=== PATIENT | female | born 1985 | race Caucasian/White ===

== ENCOUNTER 2019-03-25 13:00 | Emergency (ER) | payer OTHER, MEDICAID, SELFPAY ==
[2019-03-25 13:02] VITALS: BP 134/83; PULSE 85; RESP 16; TEMP 36.9; O2SAT 99; BMI 36.0
--- NOTE | 2019-03-25 14:10 | ED_ITS ---
HPI - Eye Problem General Chief complaint: Eye Problems Stated complaint: pupils are different sizes Time Seen by Provider: 03/25/19 14:09 Source: patient Mode of arrival: Ambulatory Limitations: no limitations History of Present Illness HPI Narrative: The patient is a 33-year-old female who was sent into the emergency department by her primary care physician because she cannot be seen in follow-up in the office. She was seen by an electro mechanical technician on Sunday 4 days prior to admission when she was told that she had unequal pupils. The electro mechanical technician told her that she would need to be seen in follow-up by her primary physician. The patient denies any eye pain change in vision double vision blurred vision or loss of vision. She does not have any headache. Her eyelids do not droop. She has had no weakness of the face. She has had no neck injury or neck pain arm. She has had no irregular heartbeat, heart murmur or chest pain. She denies any recent cough sore throat nasal congestion shortness of breath or chest pain. She has had no nausea no vomiting no diarrhea. She denies being . Related Data Home Medications Medication Instructions Recorded Confirmed multivitamin 1 tab PO DAILY 03/25/19 03/25/19 polyethylene glycol 3350 [Miralax] 17 g PO DAILY PRN 03/25/19 03/25/19 Allergies Allergy/AdvReac Type Severity Reaction Status Date / Time No Known Drug Allergies Allergy Verified 03/25/19 13:02 Review of Systems Review of Systems ROS Unobtainable: All systems reviewed & are unremarkable except as noted in HPI and below Patient History Family History Grandfather Heart disease Grandmother History of breast cancer Alzheimers disease Social History Smoking Status: Current every day smoker Smoking Status: Current every day smoker alcohol intake frequency: holidays/special occasions only Substance Use Type: does not use Exam Narrative Exam Narrative: PHYSICAL EXAM: CONSTITUTIONAL: Awake, Alert, Oriented, Coherent, Cooperative in NAD. Does not appear toxic or ill. HEAD: AT/NC EENT: Pupils are on equal left greater than right. Both react briskly in constrict to light. Both dilated in the dark. Anterior chambers are clear. Fundi are sharp discs bilaterally. Patient has full range of motion of the eyes without nystagmus. No drainage from the ears, Tympanic membranes intact bilaterally, clear EAC No epistaxis or nasal drainage Oral mucosa is moist and pink, posterior pharynx is without erythema or exudate. NECK: Supple, no obvious JVD, Trachea is midline without stridor, no palpable LN or masses. No bruits SPINE: No gross deformity, no palpable tenderness of the cervical, thoracic, lumbar or sacral spine. No CVA tenderness. THORAX: No deformity, retractions, chest wall tenderness, subcutaneous air or crepitice. LUNGS: Clear with symmetrical breath sounds without respiratory distress HEART: Normal heart tones, regular rhythm and rate without murmur. SKIN: No rash, bruising, petechiae or purpura. NEURO: Awake, alert, oriented, conversive, cranial nerves II-XII are symmetrical and normal, moves all 4 extremities and is ambulatory the patient is able to shrug both shoulders. She has full range motion of her neck. There is no ptosis of the eyelids. There is no decreased sensation or dryness of the skin arm over her of face for head or arm shoulders. Initial Vital Signs Initial Vital Signs: Vital Signs Temperature 98.4 F 03/25/19 13:02 Pulse Rate 85 03/25/19 13:02 Respiratory Rate 16 03/25/19 13:02 Blood Pressure 134/83 03/25/19 13:02 Pulse Oximetry 99 03/25/19 13:02 Course Course Course Narrative: The patient was advised that at this time no acute pathology is evident. She was advised that she needs to be seen in follow-up by her primary care physician and the un equal pupils followed. No further testing n eeds to be performed in the emergency department at this time. But will need to be followed by her primary care physician she was informed that this may be just a normal variant. She was also stated that she got no eyedrops other than that provided by the electro mechanical technician. She has gotten no soap for chemicals in her eye. She is unaware of any head trauma or bruising to the area of the arm I. She was advised to follow-up with her primary care should care physician in 48- 72 hours. Vital Signs Vital signs: Vital Signs - 8 hr 03/25/19 13:02 Temperature 98.4 F Pulse Rate 85 Respiratory Rate 16 Blood Pressure 134/83 Pulse Oximetry 99 Discharge Plan Departure Patient Disposition: Home Clinical Impression: Anisocoria Discharge Date/Time: 03/25/19 14:44 Activity Restrictions/Additional Instructions: There are no specific instructions for anisocoria. You can look this up on the Internet. 20% of the population have it and it is completely normal. Other causes can be local trauma chemicals in the eye etc.. He can be also associated with headaches. If you start developing headaches numbness tingling loss of sensation weakness on 1 side of the body arm than you need to be re-evaluated. Otherwise I would just follow up with her primary care physician and monitor it. Your neurological exam was completely within normal limits an year funduscopic exam was also normal. Prescriptions: No Action multivitamin Tablet 1 tab PO DAILY RF: 0 polyethylene glycol 3350 [Miralax] 17 gram Powder In Packet 17 g PO DAILY PRN (Reason: Constipation) RF: 0 Referrals: April Feldman ARNP [Primary Care Provider] -
== END 2019-03-25 14:44 | disposition home or self-care (01) ==
PROVIDERS: Emergency Provider Emergency Medicine; PCP Nurse Practitioner Gerontology
DX: H57.02 Anisocoria (principal)
CPT/HCPCS: 99281

== ENCOUNTER 2022-12-17 12:12 | Emergency (ER) | payer OTHER, MEDICAID, SELFPAY ==
[2022-12-17 12:18] VITALS: BP 127/82; PULSE 66; RESP 16; TEMP 37.1; O2SAT 100; BMI 38.7
--- NOTE | 2022-12-17 14:15 | ED.BACK ---
HPI - Back Pain/Injury <Ernst Ibarra PA-C - Last Filed: 12/17/22 14:46> General Chief Complaint: Back Pain/Injury Stated Complaint: back spasms Time Seen by Provider: 12/17/22 14:15 Source: patient History of Present Illness HPI Narrative: This is a 37-year-old female presents emergency department due to acute on chronic left-sided lower back pain. States that she has a history of chronic back pain with occasional flare-ups. No specific trauma or injury to the area. States that she is been taking muscle relaxants, ibuprofen for the pain with some relief. Requesting a Medrol Dosepak as she says it is worked very effectively for her in the past. Denies any saddle paresthesias, urinary or bowel incontinence, or any other concerning signs or symptoms. Related Data Home Medications Medication Instructions Recorded Confirmed multivitamin 1 tab PO DAILY 03/25/19 03/25/19 polyethylene glycol 3350 17 gram 17 g PO DAILY PRN Constipation 03/25/19 03/25/19 oral powder packet (Miralax) Previous Rx's Medication Instructions Recorded cyclobenzaprine 10 mg tablet 10 mg PO TID PRN muscle spasm #30 12/17/22 tabs methylprednisolone 4 mg tablets in See Rx Instructions PO .COMPLEX 12/17/22 a dose pack (Medrol (Ean)) #21 ea Allergies Allergy/AdvReac Type Severity Reaction Status Date / Time No Known Drug Allergies Allergy Verified 03/25/19 13:02 Review of Systems <Ernst Ibarra PA-C - Last Filed: 12/17/22 14:46> Review of Systems Narrative: GENERAL: Denies chills, fatigue, malaise, fever, sweats. HEENT: Denies sinus pain, ear pain, sore throat, difficulty swallowing, dizziness. RESPIRATORY: Denies dyspnea, cough, wheezing, hemoptysis, sputum. CARDIOVASCULAR: Denies chest pain, palpitations, orthopnea, edema, GASTROINTESTINAL: Denies nausea, vomiting, abdominal pain, diarrhea, constipation, melena. : Denies dysuria, frequency, incontinence, hematuria, urinary retention. MUSCULOSKELETAL: Left-sided lumbar pain. SKIN: Denies rash, skin lesions, or other NEUROLOGIC: Denies weakness, headache, numbness, change in speech, confusion, seizures, incoordination. PSYCHIATRIC: No concerning psychosocial issues. 12 point review of systems is negative except for those stated above Patient History <Ernst Ibarra PA-C - Last Filed: 12/17/22 14:46> Family History Grandfather Heart disease Grandmother History of breast cancer Alzheimers disease Social History Smoking Status: Current every day smoker Smoking Status: Current every day smoker alcohol intake frequency: holidays/special occasions only Substance Use Type: does not use Exam <Ernst Ibarra PA-C - Last Filed: 12/17/22 14:46> Narrative Exam Narrative: GENERAL: Well-developed patient, in mild distress. HEAD: Atraumatic. Normocephalic. EYES: Pupils equal round and reactive. Extraocular motions intact. No scleral icterus. No injection or drainage. ENT: Nose without bleeding, purulent drainage. Throat without erythema, tonsillar hypertrophy or exudate. Airway patent. NECK: Trachea midline. Non tender CARDIOVASCULAR: Regular rate and rhythm without murmurs, gallops, or rubs. RESPIRATORY: Clear to auscultation. Breath sounds equal bilaterally. No wheezes, rales, or rhonchi. GASTROINTESTINAL: Abdomen soft, non-tender, nondistended. EXTREMITIES: No edema or joint tenderness. BACK: Mild tenderness to palpation to lumbar paraspinal muscles. NEURO: AOx3. SKIN: No rash or erythema of visible areas Initial Vital Signs Initial Vital Signs: Vital Signs Temperature 98.7 F 12/17/22 12:18 Pulse Rate 66 12/17/22 12:18 Respiratory Rate 16 12/17/22 12:18 Blood Pressure 127/82 12/17/22 12:18 Pulse Oximetry 100 12/17/22 12:18 Oxygen Delivery Method Room Air 12/17/22 12:18 <Johanna Mascorro DO - Last Filed: 12/21/22 08:53> Initial Vital Signs Initial Vital Signs: Vital Signs Temperature 98.7 F 12/17/22 12:18 Pulse Rate 66 12/17/22 12:18 Respiratory Rate 16 12/17/22 12:18 Blood Pressure 127/82 12/17/22 12:18 Pulse Oximetry 100 12/17/22 12:18 Oxygen Delivery Method Room Air 12/17/22 12:18 Course <Ernst Ibarra PA-C - Last Filed: 12/17/22 14:46> Vital Signs Vital signs: Vital Signs - 8 hr 12/17/22 12:18 Temperature 98.7 F Pulse Rate 66 Respiratory Rate 16 Blood Pressure 127/82 Pulse Oximetry 100 Oxygen Delivery Method Room Air <Johanna DO Subha - Last Filed: 12/21/22 08:53> Vital Signs Vital signs: Vital Signs - 8 hr 12/17/22 12:18 Temperature 98.7 F Pulse Rate 66 Respiratory Rate 16 Blood Pressure 127/82 Pulse Oximetry 100 Oxygen Delivery Method Room Air MDM - Back Pain/Injury <Ernst Ibarra PA-C - Last Filed: 12/17/22 14:46> MDM Narrative Medical decision making narrative: MDM * differential diagnosis includes but not limited to lumbosacral strain, central cord compromise, fracture * Prior records reviewed: Patient has not been here in the past. * My lab interpretation: None obtained * My imgaing interpretation: None obtained * Clinical Decision Rules/Scores evaluated: None * Independent discussions with: None ED Course: This is a 37-year-old female presents emergency department complaining of acute on chronic lower back pain. No specific injuries or trauma and low concern for any kind of fracture. No concerning red flag symptoms such as saddle paresthesia, urinary incontinence, or other concerning signs or symptoms. Patient requesting Medrol Dosepak and will prescribe as well as muscle relaxants and recommendations for ibuprofen and Tylenol and other conservative measures. Patient states she is been taking ibuprofen throughout the day and was not treated with Toradol. Shared Decision Making: Discussed plan with patient who is comfortable with the plan. Social Considerations: None Disposition: Discharged to home. Discharge Plan Departure Patient Disposition: Home Clinical Impression: Strain of lumbar region Instructions: DI for Back Spasm Activity Restrictions/Additional Instructions: Thank you for coming to the [facility] Emergency Department today. Please take the oral medications as prescribed. Also recommend you speak with the primary care provider for possible referral to physical therapy for long-term management of your chronic back pain. I hope you feel better soon. Please follow up with your primary care provider within a week if your symptoms continue. If you do not have a primary care provider please contact the [facility] Resource line at [phone]. They will ask some questions about your medical history and help you get set up with a provider in the community. Prescriptions: New methylprednisolone [Medrol (Ean)] 4 mg tablets,dose pack See Rx Instructions .ROUTE .COMPLEX Qty: 21 0RF Rx Instructions: orally per package directions cyclobenzaprine 10 mg tablet 10 mg PO TID PRN (Reason: muscle spasm) Qty: 30 0RF No Action multivitamin Tablet 1 tab PO DAILY polyethylene glycol 3350 [Miralax] 17 gram Powder In Packet 17 g PO DAILY PRN (Reason: Constipation) Referrals: April Feldman ARNP [Primary Care Provider] - Stand Alone Forms: Patient Portal/API ED Sign-out <Johanna Mascorro DO - Last Filed: 12/21/22 08:53> Cosign ED Attending Apoorvaature Attestation: I was immediately available in the department for consultation. Documentation has been reviewed.
[2022-12-17 14:50] VITALS: BP 125/82; PULSE 64; RESP 16; TEMP 37; O2SAT 100
== END 2022-12-17 14:51 | disposition home or self-care (01) ==
PROVIDERS: Emergency Provider Physician Assistant Medical; PCP Nurse Practitioner Gerontology
DX: S39.012A Strain of muscle, fascia and tendon of lower back, initial encounter (principal)
CPT/HCPCS: 99281

== ENCOUNTER 2023-07-15 10:22 | Emergency (ER) | payer OTHER, MEDICAID, SELFPAY ==
[2023-07-15] VITALS (11 sets, daily range): BP systolic 111–152; BP diastolic 68–91; PULSE 62–90; RESP 13–23; O2SAT 97–100; BMI 36.8
[2023-07-15 11:02] LABS: Alanine Aminotransferase 23 IU/L (<35); Albumin 5.1 g/dL (3.5-5.0); Albumin Globulin Ratio 1.9 (1.0-2.8); Alkaline Phosphatase 72 U/L (38-126); Aspartate Aminotransferase 26 IU/L (14-36); BUN Creatinine Ratio 8.8 (6-22); Bilirubin Total 0.9 mg/dL (0.2-1.3); Blood Urea Nitrogen 6 mg/dL (7-17); Calcium 9.2 mg/dL (8.4-10.2); Carbon Dioxide 21 mmol/L (22-32); Chloride 109 mmol/L (98-107); Estimated Glomerular Filt Rate > 60 mL/min (>60); Globulin 2.7 g/dL (1.7-4.1); Glucose 120 mg/dL (70-100); HEMOLYSIS < 15 (0-50); Potassium 3.6 mmol/L (3.4-5.1); Sodium 139 mmol/L (137-145); Total Protein 7.8 g/dL (6.3-8.2)
[2023-07-15 11:07] LABS: Add Manual Diff / Slide Review NO; Basophils Absolute Auto 0 /uL (0-100); Basophils Percent Auto 0.6 % (0-2); Eosinophils Absolute Auto 100 /uL (0-450); Eosinophils Percent Auto 1.3 % (2-4); Hematocrit 40.4 % (36-46); Hemoglobin 13.7 g/dL (12.0-16.0); Lymphocytes Absolute Auto 1400 /uL (1100-4500); Lymphocytes Percent Auto 21.7 % (25-40); Mean Corpuscular HGB Conc 33.9 % (30-36); Mean Corpuscular Hemoglobin 29.5 PG (26-34); Mean Corpuscular Volume 87.2 fL (80-100); Monocytes Absolute Auto 400 /uL (0-900); Monocytes Percent Auto 6.7 % (3-14); Neutrophils Absolute Auto 4500 /uL (1500-7000); Neutrophils Percent Auto 69.7 % (50-75); Platelet Count 236 X10^3/uL (150-400); Red Blood Cell Count 4.64 X10^6/uL (4.0-5.2); Red Cell Distribution Width 14.6 % (11.6-14.8); White Blood Cell Count 6.5 X10^3/uL (4.5-11.0)
[2023-07-15 11:13] LABS: Troponin I < 0.012 ng/mL (0.01-0.034)
[2023-07-15] MEDS: SODIUM CHLORIDE 0.9% 1,000 ML 1000 ML IV ×2 (11:19→12:16)
--- NOTE | 2023-07-15 12:04 | ED_ITS ---
HPI - Dizziness General Chief Complaint: Dizziness Stated Complaint: feeling lightheaded Time Seen by Provider: 07/15/23 10:53 Source: patient Mode of arrival: Ambulatory History of Present Illness HPI Narrative: Patient is a 37-year-old healthy female who presents today with lightheadedness. She reports that every time she stands up she gets a little lightheaded. She has not passed out no syncopal episodes. She feels like heart rate goes up a little bit. She reports significant night sweats where she waits wakes up and a drenching sweat but denies any significant weight loss. She does not really have sore throat or cough. No abdominal pain nausea or vomiting. She reports that she has been drinking lots of water. She thought that maybe her sugar was low she was she has been drinking lots of ice tea. Been to the urgent care twice they told her that she was anxious Related Data Home Medications Medication Instructions Recorded Confirmed multivitamin 1 tab PO DAILY 03/25/19 03/25/19 polyethylene glycol 3350 17 gram 17 g PO DAILY PRN Constipation 03/25/19 03/25/19 oral powder packet (Miralax) Previous Rx's Medication Instructions Recorded cyclobenzaprine 10 mg tablet 10 mg PO TID PRN muscle spasm #30 12/17/22 tabs methylprednisolone 4 mg tablets in See Rx Instructions PO .COMPLEX 12/17/22 a dose pack (Medrol (Ean)) #21 ea Allergies Allergy/AdvReac Type Severity Reaction Status Date / Time No Known Drug Allergies Allergy Verified 03/25/19 13:02 Patient History Family History Grandfather Heart disease Grandmother History of breast cancer Alzheimers disease Social History Smoking Status: Current every day smoker Smoking Status: Current every day smoker tobacco type: cigarettes alcohol intake frequency: holidays/special occasions only Substance Use Type: marijuana Exam Initial Vital Signs Initial Vital Signs: Vital Signs Pulse Rate 80 07/15/23 10:31 Blood Pressure 135/86 07/15/23 10:31 Pulse Oximetry 99 07/15/23 10:31 GENERAL: Alert pleasant well-appearing 37-year-old and in no acute distress. HEENT: Head atraumatic,EOMI, pupils reactive, face symmetric, no significant cervical lymphadenopathy CARDIOVASCULAR: Regular rate and rhythm without murmurs, rubs or gallops. RESPIRATORY: Breath sounds equal bilaterally, no wheezes rales or rhonchi. ABDOMEN: Soft, nontender. Normoactive bowel sounds all 4 quadrants. No guarding or rebound. EXTREMITIES: Normal range of motion, no clubbing or edema. Neurovascularly intact NEUROLOGICAL: Alert and oriented x4.Normal gait and speech. Cranial nerves II through XII grossly intact. SKIN: Warm, dry, no laceration, no petechiae, no rashes or lesions. Course Orders Ordered: ED Orders 07/15/23 12:11 Respiratory Panel (Film Array) Stat Discontinued Medications Sodium Chloride (Normal Saline 0.9%) 1,000 mls @ 1,000 mls/hr IV BOLUS ONE Stop: 07/15/23 11:58 Last Infusion: 07/15/23 12:04 Dose: Infused Documented By: Admin: 07/15/23 11:19 Dose: 1,000 mls/hr Documented By: Sodium Chloride (Normal Saline 0.9%) 1,000 mls @ 1,000 mls/hr IV BOLUS ONE Stop: 07/15/23 13:15 Last Infusion: 07/15/23 12:44 Dose: Infused Documented By: Admin: 07/15/23 12:16 Dose: 1,000 mls/hr Documented By: Vital Signs Vital signs: Vital Signs - 8 hr 07/15/23 12:00 07/15/23 12:00 07/15/23 12:06 Pulse Rate 63 90 Respiratory Rate 23 Blood Pressure 111/71 Pulse Oximetry 99 99 Oxygen Delivery Method 07/15/23 12:06 07/15/23 12:30 07/15/23 12:30 Pulse Rate 62 Respiratory Rate 21 Blood Pressure 152/73 H 124/77 Pulse Oximetry 100 Oxygen Delivery Method 07/15/23 12:46 07/15/23 12:46 07/15/23 13:00 Pulse Rate 71 Respiratory Rate 13 Blood Pressure 142/91 H 120/73 Pulse Oximetry 100 Oxygen Delivery Method 07/15/23 13:00 07/15/23 13:30 07/15/23 13:30 Pulse Rate 65 69 Respiratory Rate 15 23 Blood Pressure 122/75 Pulse Oximetry 97 97 Oxygen Delivery Method 07/15/23 14:00 Pulse Rate 74 Respiratory Rate 16 Blood Pressure 122/75 Pulse Oximetry 97 Oxygen Delivery Method Room Air MDM - Dizziness Lab Data 07/15/23 10:43 07/15/23 10:43 Labs: Lab Results 07/15/23 07/15/23 Range/Units 10:43 12:11 WBC 6.5 (4.5-11.0) X10^3/uL RBC 4.64 (4.0-5.2) X10^6/uL Hgb 13.7 (12.0-16.0) g/dL Hct 40.4 (36-46) % MCV 87.2 (80-100) fL MCH 29.5 (26-34) PG MCHC 33.9 (30-36) % RDW 14.6 (11.6-14.8) % Plt Count 236 (150-400) X10^3/uL Neut % (Auto) 69.7 (50-75) % Lymph % (Auto) 21.7 L (25-40) % George % (Auto) 6.7 (3-14) % Eos % (Auto) 1.3 L (2-4) % Baso % (Auto) 0.6 (0-2) % Neut # (Auto) 4500 (3712-1259) /uL Lymph # (Auto) 1400 (7279-9432) /uL George # (Auto) 400 (0-900) /uL Eos # (Auto) 100 (0-450) /uL Baso # (Auto) 0 (0-100) /uL Sodium 139 (137-145) mmol/L Potassium 3.6 (3.4-5.1) mmol/L Chloride 109 H (98-107) mmol/L Carbon Dioxide 21 L (22-32) mmol/L BUN 6 L (7-17) mg/dL Creatinine 0.68 (0.52-1.04) mg/dL Estimated GFR > 60 (>60) mL/min BUN/Creatinine Ratio 8.8 (6-22) Glucose 120 H (70-100) mg/dL Calcium 9.2 (8.4-10.2) mg/dL Total Bilirubin 0.9 (0.2-1.3) mg/dL AST 26 (14-36) IU/L ALT 23 (<35) IU/L Alkaline Phosphatase 72 (38-126) U/L Troponin I < 0.012 (0.01-0.034) ng/mL Total Protein 7.8 (6.3-8.2) g/dL Albumin 5.1 H (3.5-5.0) g/dL Globulin 2.7 (1.7-4.1) g/dL Albumin/Globulin Ratio 1.9 (1.0-2.8) Chlamy pneumoniae PCR Not detected (Not Detect) Adenovirus (PCR) Not detected (Not Detect) B.parapertussis DNA PCR Not detected (Not Detecte) Coronavirus OC43 (PCR) Not detected (Not Detect) Coronavirus HKU1 (PCR) Not detected (Not Detect) Coronavirus 229E (PCR) Not detected (Not Detect) SARS-CoV-2 (PCR) Not detected (Not Detecte) Coronavirus NL63 (PCR) Not detected (Not Detect) Human Metapneumovir PCR Not detected (Not Detect) Influenza Type A (PCR) Not detected (Not Detect) Influenza Type B (PCR) Not detected (Not Detect) M. pneumoniae (PCR) Not detected (Not Detect) Parainfluenza 1 (PCR) Not detected (Not Detect) Parainfluenza 2 (PCR) Not detected (Not Detect) Parainfluenza 3 (PCR) Not detected (Not Detect) Parainfluenza 4 (PCR) Not detected (Not Detect) RSV (PCR) Not detected (Not Detect) Entero/Rhino (PCR) Detected H (Not Detect) Point of Care Testing Test Results Negative Urine Dip Bedside Urine Glucose Negative Bedside Urine Bilirubin - Negative Bedside Urine Ketone - Negative Urine Specific [place] 1.005 Bedside Urine Occult Blood - Negative Bedside Urine pH 6.0 Bedside Urine Protein - Negative Bedside Urine Urobilinogen - Negative Bedside Urine Nitrite - Negative Bedside Urine Leukocytes - Negative Esterase ECG Data Attestation: I personally reviewed and interpreted this ECG as follows: Prior ECG tracings: not available for review Interpretation: Normal sinus rhythm rate 72 NE interval 184 QRS [address] changes no T- wave inversions [facility] Narrative Medical decision making narrative: 37-year-old female presents today with some dizziness lightheadedness whenever she stands up. When she lays down she does not feel as bad. Upon standing in the ED heart rate goes from 60-118 and in trickles back down. She remains in the sinus rhythm. She has not dizzy or lightheaded.No focal deficits. Blood work has been reviewed WBC 6.5, hemoglobin 13.7, hematocrit 40.4, sodium 139, potassium 3.6, chloride 109, carbon dioxide 21, BUN 6, creatinine 0.6, glucose 120, Viral panel is positive for entero/rhinovirus Patient received 2 L of IV fluids overall feeling a lot better. I suspect that she has the entero/rhinovirus causing her night sweats and some mild dehydration. She has positive orthostatics. Patient's is rechecked after 2 L of fluid. She is able to stand up heart rate only goes up to 108 she has not dizzy or lightheaded. Even though blood work does not show significant dehydration I do suspect that she was probably a little dehydrated. Her a definitely decreases soon as she lays down into the 60s. I have very low suspicion for any sort of pulmonary embolism she has not significantly short of breath. Symptoms are most consistent with an infectious etiology and she has a positive viral panel. At this time supportive care only Discharge Plan Departure Patient Disposition: Home Clinical Impression: Acute upper respiratory infection, Acute dehydration Instructions: Orthostatic Hypotension, DI for Viral Upper Respiratory Infection -- Adult Activity Restrictions/Additional Instructions: *You have been diagnosed with upper respiratory infection dehydration *What to do: At this time you do have upper respiratory virus. I think that you are little dehydrated which is why you feel lightheaded when he stands up. You received 2 L of IV fluids. I do recommend drinking Gatorade or Pedialyte while you are sick. *Continue to take medications as directed Tylenol Motrin as needed for fever *Follow up with your primary care provider in 2-3 days or call [phone] *Return to ER if you should have increasing dizziness lightheadedness passing out increasing shortness of breath or any new, worsening or concerning symptoms Prescriptions: No Action multivitamin Tablet 1 tab PO DAILY polyethylene glycol 3350 [Miralax] 17 gram Powder In Packet 17 g PO DAILY PRN (Reason: Constipation) methylprednisolone [Medrol (Ean)] 4 mg tablets,dose pack See Rx Instructions .ROUTE .COMPLEX Qty: 21 0RF Rx Instructions: orally per package directions cyclobenzaprine 10 mg tablet 10 mg PO TID PRN (Reason: muscle spasm) Qty: 30 0RF Referrals: April Feldman ARNP [Primary Care Provider] - Stand Alone Forms: Patient Portal/API
[2023-07-15 13:12] LABS: Adenovirus Not Detected (Not Detect); B. parapertussis Not Detected (Not Detecte); Bordetella pertussis Not Detected (Not Detect); Chlamydophila pneumoniae Not Detected (Not Detect); Coronavirus 229E Not Detected (Not Detect); Coronavirus HKU1 Not Detected (Not Detect); Coronavirus NL 63 Not Detected (Not Detect); Coronavirus OC43 Not Detected (Not Detect); Human Metapneumovirus Not Detected (Not Detect); Human Rhinovirus/Enterovirus Detected (Not Detect); Influenza A Not Detected (Not Detect); Influenza B Not Detected (Not Detect); Mycoplasma pneumoniae Not Detected (Not Detect); Parainfluenza Virus 1 Not Detected (Not Detect); Parainfluenza Virus 2 Not Detected (Not Detect); Parainfluenza Virus 3 Not Detected (Not Detect); Parainfluenza Virus 4 Not Detected (Not Detect); Respiratory Syncytial Virus Not Detected (Not Detect); SARS- CoV-2 Not Detected (Not Detecte)
== END 2023-07-15 15:04 | disposition home or self-care (01) ==
PROVIDERS: Emergency Provider Emergency Medicine; PCP Nurse Practitioner Gerontology
DX: J06.9 Acute upper respiratory infection, unspecified (principal); B34.8 Other viral infections of unspecified site; E86.0 Dehydration; Z20.822 Contact with and (suspected) exposure to COVID-19
CPT/HCPCS: 36415; 80053; 81003; 81025; 84484; 85025; 87633; 93005; 96360; 99284

== ENCOUNTER 2023-07-17 09:24 | Emergency (ER) | payer OTHER, MEDICAID, SELFPAY ==
--- NOTE | 2023-07-17 09:32 | ED_ITS ---
HPI - General Adult General Chief complaint: Dizziness Stated complaint: lightheaded t-6 Time Seen by Provider: 07/17/23 09:31 History of Present Illness HPI narrative: 37-year-old woman with a history of anxiety, history of an immune deficiency disorder, chronic constipation presents complaining that she is continuing to feel weak and dizzy when she stands up. She was initially seen in the walk-in clinic in [place] for this and conservative management was recommended after a normal chest x-ray, she was seen and evaluated in this ER on the with blood work reassuring, mild dehydration and positive for rhino enterovirus and conservative management was again recommended. She continues to have significant symptoms when she is standing. She feels flushed but is not noticing any fevers. She states she has had multiple viruses before and this does not feel like a simple viral infection she is concerned that there is more going on. Has been no change to medications, she is not having significant insensible volume losses, is able to eat and drink without difficulty. Related Data Home Medications Medication Instructions Recorded Confirmed multivitamin 1 tab PO DAILY 03/25/19 03/25/19 polyethylene glycol 3350 17 gram 17 g PO DAILY PRN Constipation 03/25/19 03/25/19 oral powder packet (Miralax) Previous Rx's Medication Instructions Recorded cyclobenzaprine 10 mg tablet 10 mg PO TID PRN muscle spasm #30 12/17/22 tabs methylprednisolone 4 mg tablets in See Rx Instructions PO .COMPLEX 12/17/22 a dose pack (Medrol (Ean)) #21 ea Allergies Allergy/AdvReac Type Severity Reaction Status Date / Time No Known Drug Allergies Allergy Verified 03/25/19 13:02 Review of Systems Review of Systems Narrative: Pertinent positive and negative findings as per HPI Patient History Family History Grandfather Heart disease Grandmother History of breast cancer Alzheimers disease Social History Smoking Status: Current every day smoker Smoking Status: Current every day smoker tobacco type: cigarettes alcohol intake frequency: holidays/special occasions only Substance Use Type: marijuana Exam Initial Vital Signs Initial Vital Signs: Vital Signs Temperature 98.5 F 07/17/23 09:49 Pulse Rate 88 07/17/23 09:49 Respiratory Rate 16 05/21/24 09:49 Blood Pressure 137/86 07/17/23 09:49 Pulse Oximetry 99 07/17/23 09:49 Oxygen Delivery Method Room Air 07/17/23 09:49 General: Healthy appearing, in no acute distress. Somewhat flushed and anxious but otherwise Able to give a complete and coherent history. Well-nourished well-developed HEENT: Moist mucous membranes, normal sclera with reactive pupils, Neck: No JVD, no cervical adenopathy Respiratory: Lungs are clear to auscultation, no wheezing no rales no rhonchi. Full and symmetrical air movement Cardiac: Regular rate and rhythm no murmurs no bruits Abdomen: Soft, nontender, good bowel tones, no flank pain Skin: Warm and dry, no rashes Neurologic: Grossly neurologically intact with no obvious asymmetries or abnormalities Extremities: No trauma, well perfused Psych: Cooperative, appropriate insight and affect Heart rate is at 95 while sitting and increases to 118 while standing Course Orders Ordered: ED Orders 07/17/23 09:44 Complete Blood Count AUTO DIFF Stat Comprehensive Metabolic Panel Stat D Dimer Stat Lactate (Lactic Acid) Stat NT-proBNP (BNP-Adult 18+) Stat Troponin & CK Cardiac Panel Stat 07/17/23 09:46 EKG-12 Lead Stat 07/17/23 10:41 XR chest 1V Stat Discontinued Medications Sodium Chloride (Normal Saline 0.9%) 1,000 mls @ 1,000 mls/hr IV BOLUS ONE Stop: 07/17/23 10:39 Last Infusion: 07/17/23 10:39 Dose: Infused Documented By: Admin: 07/17/23 09:59 Dose: 1,000 mls/hr Documented By: TOD Vital Signs Vital signs: Vital Signs - 8 hr 07/17/23 09:49 07/17/23 10:37 Temperature 98.5 F Pulse Rate 88 76 Respiratory Rate 16 Blood Pressure 137/86 Pulse Oximetry 99 100 Oxygen Delivery Method Room Air Medical Decision Making Lab Data 07/17/23 09:44 07/17/23 09:44 Labs: Lab Results 07/17/23 Range/Units 09:44 WBC 9.9 D (4.5-11.0) X10^3/uL RBC 4.54 (4.0-5.2) X10^6/uL Hgb 13.5 (12.0-16.0) g/dL Hct 39.7 (36-46) % MCV 87.5 (80-100) fL MCH 29.8 (26-34) PG MCHC 34.0 (30-36) % RDW 14.6 (11.6-14.8) % Plt Count 240 (150-400) X10^3/uL Neut % (Auto) 76.6 H (50-75) % Lymph % (Auto) 17.0 L (25-40) % [place] % (Auto) 5.5 (3-14) % Eos % (Auto) 0.6 L (2-4) % Baso % (Auto) 0.3 (0-2) % Neut # (Auto) 7600 H (4855-6850) /uL Lymph # (Auto) 1700 (5232-7903) /uL [place] # (Auto) 500 (0-900) /uL Eos # (Auto) 100 (0-450) /uL Baso # (Auto) 0 (0-100) /uL D-Dimer 259 (<500) ng/ml Sodium 139 (137-145) mmol/L Potassium 3.7 (3.4-5.1) mmol/L Chloride 108 H (98-107) mmol/L Carbon Dioxide 19 L (22-32) mmol/L BUN 5 L (7-17) mg/dL Creatinine 0.66 (0.52-1.04) mg/dL Estimated GFR > 60 (>60) mL/min BUN/Creatinine Ratio 7.6 (6-22) Glucose 115 H (70-100) mg/dL Lactate 1.5 (0.7-2.1) mmol/L Calcium 9.4 (8.4-10.2) mg/dL Total Bilirubin 0.7 (0.2-1.3) mg/dL AST 23 (14-36) IU/L ALT 22 (<35) IU/L Alkaline Phosphatase 69 (38-126) U/L Total Creatine Kinase 67 (30-135) U/L Troponin I < 0.012 (0.01-0.034) ng/mL NT-Pro-B Natriuret Pep 33 (<125) pg/mL Total Protein 8.0 (6.3-8.2) g/dL Albumin 5.3 H (3.5-5.0) g/dL Globulin 2.7 (1.7-4.1) g/dL Albumin/Globulin Ratio 2.0 (1.0-2.8) Point of Care Testing Test Results Negative Urine Dip Bedside Urine Glucose Negative Bedside Urine Bilirubin - Negative Bedside Urine Ketone - Negative Urine Specific [place] 1.000 Bedside Urine Occult Blood - Negative Bedside Urine pH 6.0 Bedside Urine Protein - Negative Bedside Urine Urobilinogen - Negative Bedside Urine Nitrite - Negative Bedside Urine Leukocytes - Negative Esterase Point of care testing: Point of Care Testing Test Results Negative Urine Dip Bedside Urine Glucose Negative Bedside Urine Bilirubin - Negative Bedside Urine Ketone - Negative Urine Specific [place] 1.000 Bedside Urine Occult Blood - Negative Bedside Urine pH 6.0 Bedside Urine Protein - Negative Bedside Urine Urobilinogen - Negative Bedside Urine Nitrite - Negative Bedside Urine Leukocytes - Negative Esterase MDM Narrative Medical decision making narrative: CC: Persistent dizziness when standing Complicating co-morbidities: Recent diagnosis of rhino virus, anxiety Data collected from: patient Medical records reviewed: Notes from ER visit on July 14 for similar complaints are reviewed Differential considered: Viral syndrome, dehydration, endocrine pathology, viral cardiomyopathy, pulmonary embolism Exam documented above, pertinent findings include: Patient does have relative orthostasis with a change in heart rate from sitting to standing. With her tachycardia she is dizzy. Exam is otherwise benign Lab Test results independently reviewed as above. Pertinent findings: CBC is unremarkable Chemistries are reassuring D-dimer is not elevated to suggest pulmonary embolism Independently reviewed EKG: Sinus rhythm at a rate of 74. Normal intervals, normal axis. No acute ischemic changes Imaging studies independently reviewed: Chest x-ray is consistent with viral infection with mild peribronchial thickening. No infiltrates, specifically no cardiomegaly or cephalization to suggest congestive heart failure Discussion: 37-year-old woman with persistent orthostatic hypotension since beginning her rhino/enterovirus course. Workup today does not suggest significant bacterial infection, sepsis, heart failure, cardiomyopathy, pulmonary embolism, severe dehydration, pneumothorax, anemia or alternate explanation for her mild orthostasis. She again responded nicely to fluids. Reassurance is given. We talked about anticipated course of resolution being 7- 10 days and allowing her body to rest as needed. Questions are answered and she is safe for discharge Discharge Plan Departure Patient Disposition: Home Clinical Impression: Enteroviral infection, Orthostatic hypotension Instructions: Orthostatic Hypotension Activity Restrictions/Additional Instructions: Thank you for coming in today While you do still have the entero/rhino virus I am not finding life-threatening explanations for the low blood pressure when you stand. There was no evidence of bacterial infection, sepsis, blood clots in your lungs, cardiomyopathy, congestive heart failure alternate explanation that would require her workup or hospitalization today If you find that you are getting worse or develop any new symptoms, please feel free to return to the emergency department for further evaluation. Prescriptions: No Action multivitamin Tablet 1 tab PO DAILY polyethylene glycol 3350 [Miralax] 17 gram Powder In Packet 17 g PO DAILY PRN (Reason: Constipation) methylprednisolone [Medrol (Ean)] 4 mg tablets,dose pack See Rx Instructions .ROUTE .COMPLEX Qty: 21 0RF Rx Instructions: orally per package directions cyclobenzaprine 10 mg tablet 10 mg PO TID PRN (Reason: muscle spasm) Qty: 30 0RF Referrals: Kerry Lake PA-C [Primary Care Provider] - Stand Alone Forms: Patient Portal/API
[2023-07-17 09:49] VITALS: BP 137/86; PULSE 88; RESP 16; TEMP 36.9; O2SAT 99; BMI 37.9
[2023-07-17] MEDS: SODIUM CHLORIDE 0.9% 1,000 ML 1000 ML IV (09:59)
[2023-07-17 10:00] LABS: Add Manual Diff / Slide Review NO; Basophils Absolute Auto 0 /uL (0-100); Basophils Percent Auto 0.3 % (0-2); Eosinophils Absolute Auto 100 /uL (0-450); Eosinophils Percent Auto 0.6 % (2-4); Hematocrit 39.7 % (36-46); Hemoglobin 13.5 g/dL (12.0-16.0); Lymphocytes Absolute Auto 1700 /uL (1100-4500); Mean Corpuscular Hemoglobin 29.8 PG (26-34); Mean Corpuscular Volume 87.5 fL (80-100); Monocytes Absolute Auto 500 /uL (0-900); Monocytes Percent Auto 5.5 % (3-14); Neutrophils Absolute Auto 7600 /uL (1500-7000); Neutrophils Percent Auto 76.6 % (50-75); Platelet Count 240 X10^3/uL (150-400); Red Blood Cell Count 4.54 X10^6/uL (4.0-5.2); Red Cell Distribution Width 14.6 % (11.6-14.8); White Blood Cell Count 9.9 X10^3/uL (4.5-11.0)
[2023-07-17 10:12] LABS: Alanine Aminotransferase 22 IU/L (<35); Albumin 5.3 g/dL (3.5-5.0); Alkaline Phosphatase 69 U/L (38-126); Aspartate Aminotransferase 23 IU/L (14-36); BUN Creatinine Ratio 7.6 (6-22); Bilirubin Total 0.7 mg/dL (0.2-1.3); Blood Urea Nitrogen 5 mg/dL (7-17); Calcium 9.4 mg/dL (8.4-10.2); Carbon Dioxide 19 mmol/L (22-32); Chloride 108 mmol/L (98-107); Creatine Kinase 67 U/L (30-135); Estimated Glomerular Filt Rate > 60 mL/min (>60); Globulin 2.7 g/dL (1.7-4.1); Glucose 115 mg/dL (70-100); HEMOLYSIS < 15 (0-50); Lactate (Lactic Acid) 1.5 mmol/L (0.7-2.1); Potassium 3.7 mmol/L (3.4-5.1); Sodium 139 mmol/L (137-145)
[2023-07-17 10:23] LABS: NT-proBNP (BNP-Adult 18+) 33 pg/mL (<125); Troponin I < 0.012 ng/mL (0.01-0.034)
[2023-07-17 10:31] LABS: D Dimer 259 ng/ml (<500)
[2023-07-17 10:37] VITALS: PULSE 76; O2SAT 100
--- NOTE | 2023-07-17 10:41 | DI.RAD.S_ITS ---
PROCEDURE: XR CHEST 1V INDICATIONS: cough TECHNIQUE: One view of the chest was acquired. COMPARISON: None. FINDINGS: Surgical changes and devices: None. Lungs and pleura: Mild peribronchial thickening. No dense airspace disease or pleural effusions Mediastinum: Normal heart size Bones and chest wall: Unremarkable IMPRESSION: Limited single view radiograph. Mild peribronchial thickening may represent viral/atypical infection. No airspace disease or pleural effusion. Dictated by: Billy Villarreal M.D. on 07/17/2023 at 11:01 Approved by: Billy Villarreal M.D. on 07/17/2023 at 11:02
--- NOTE | 2023-07-17 10:41 | PC.NURSE ---
dizziness x6 days. pt states her hr spikes to 140s when she stands up. states she does not feel like this is anxiety related. states she has been having night sweats w/ no associated fever.
[2023-07-17 11:51] VITALS: BP 132/64; PULSE 65; RESP 16; TEMP 36.7; O2SAT 98
== END 2023-07-17 11:52 | disposition home or self-care (01) ==
PROVIDERS: Emergency Provider Emergency Medicine; PCP Physician Assistant Medical
DX: I95.1 Orthostatic hypotension (principal); B34.1 Enterovirus infection, unspecified
CPT/HCPCS: 71045; 80053; 81003; 81025; 82550; 83605; 83880; 84484; 85025; 85379; 93005; 99284

== ENCOUNTER 2023-09-19 20:27 | Emergency (ER) | payer OTHER, MEDICAID, SELFPAY ==
[2023-09-19] VITALS (9 sets, daily range): BP systolic 109–177; BP diastolic 63–81; PULSE 77–100; RESP 13–27; TEMP 36.9; O2SAT 96–100; BMI 34.4
--- NOTE | 2023-09-19 20:37 | EKG_ITS ---
[address] [address] Test Date: 2023-09-19 Pat Name: Tracy Cervantes Department: Room: Gender: Female [place] Supervisor: LIZBETH : 1985 Requested By: Order Number: [id number] Reading MD: Tyler Cope Measurements Intervals [place] Rate: 91 P: 67 [place]: 160 QRS: 35 QRSD: 90 T: 56 QT: 350 QTc: 430 Interpretive Statements Normal sinus rhythm Electronically Signed On 09-20-2023 7:35:38 PDT by Tyler Cope
--- NOTE | 2023-09-19 21:00 | DI.RAD.S_ITS ---
PROCEDURE: XR CHEST 1V INDICATIONS: chest pain TECHNIQUE: One view of the chest was acquired. COMPARISON: [facility], CR, XR CHEST 1V, 07/17/2023, 10:45. FINDINGS: Surgical changes and devices: None. Lungs and pleura: Lungs are clear. No pleural effusions or pneumothorax. Mediastinum: Mediastinal contours appear normal. Heart size is normal. Bones and chest wall: No suspicious bony lesions. Overlying soft tissues appear unremarkable. IMPRESSION: No acute cardiopulmonary abnormality is seen. Dictated by: Ryder Pantoja M.D. on 09/19/2023 at 23:00 Approved by: Ryder Pantoja M.D. on 09/19/2023 at 23:00
[2023-09-19 21:34] LABS: Add Manual Diff / Slide Review NO; Basophils Absolute Auto 0 /uL (0-100); Basophils Percent Auto 0.5 % (0-2); Eosinophils Absolute Auto 200 /uL (0-450); Eosinophils Percent Auto 2.9 % (2-4); Hematocrit 36.4 % (36-46); Hemoglobin 12.3 g/dL (12.0-16.0); Lymphocytes Absolute Auto 1900 /uL (1100-4500); Lymphocytes Percent Auto 27.3 % (25-40); Mean Corpuscular HGB Conc 33.7 % (30-36); Mean Corpuscular Hemoglobin 29.4 PG (26-34); Mean Corpuscular Volume 87.3 fL (80-100); Monocytes Absolute Auto 500 /uL (0-900); Monocytes Percent Auto 7.3 % (3-14); Neutrophils Absolute Auto 4300 /uL (1500-7000); Platelet Count 228 X10^3/uL (150-400); Red Blood Cell Count 4.17 X10^6/uL (4.0-5.2); Red Cell Distribution Width 14.4 % (11.6-14.8); White Blood Cell Count 6.9 X10^3/uL (4.5-11.0)
[2023-09-19 21:45] LABS: Alanine Aminotransferase 24 IU/L (<35); Albumin 4.4 g/dL (3.5-5.0); Albumin Globulin Ratio 1.6 (1.0-2.8); Alkaline Phosphatase 97 U/L (38-126); Aspartate Aminotransferase 25 IU/L (14-36); BUN Creatinine Ratio 13.9 (6-22); Bilirubin Total 0.3 mg/dL (0.2-1.3); Blood Urea Nitrogen 10 mg/dL (7-17); Carbon Dioxide 24 mmol/L (22-32); Chloride 109 mmol/L (98-107); Creatine Kinase 50 U/L (30-135); Estimated Glomerular Filt Rate > 60 mL/min (>60); Globulin 2.8 g/dL (1.7-4.1); Glucose 90 mg/dL (70-100); HEMOLYSIS 18 (0-50); Potassium 3.6 mmol/L (3.4-5.1); Sodium 141 mmol/L (137-145); Total Protein 7.2 g/dL (6.3-8.2)
[2023-09-19 21:57] LABS: Troponin I < 0.012 ng/mL (0.01-0.034)
[2023-09-19 22:02] LABS: HCG Quantitative /Beta subunit < 2.39 mIU/mL
--- NOTE | 2023-09-19 23:21 | ED_ITS ---
HPI - Arrhythmia/Palpitations General Chief Complaint: Arrhythmia/Palpitations Stated Complaint: states rapid HR, chest pain Time Seen by Provider: 09/19/23 21:00 Source: patient Mode of arrival: Ambulatory History of Present Illness HPI narrative: 37-year-old female with a 1 month duration fast heart beating sensation, sometimes minutes, sometimes lasting up to an hour, 3 times weekly or so, no change after she is stopped using coffee, denies drug or alcohol use, denies use of stimulants and dietary supplements, no known specific diagnosis of any cardiac rhythm problem, not taking metoprolol, 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 No chest discomfort. No shortness of breath or diaphoresis. She had not do anything or taken anything to make the symptoms go away, resolved on its own. No recent fevers or chills or cough, no recent diarrhea, denies any headache, denies nausea or vomiting. She does not believe herself to be . Related Data Home Medications Medication Instructions Recorded Confirmed multivitamin 1 tab PO DAILY 03/25/19 03/25/19 polyethylene glycol 3350 17 gram 17 g PO DAILY PRN Constipation 03/25/19 03/25/19 oral powder packet (Miralax) Previous Rx's Medication Instructions Recorded cyclobenzaprine 10 mg tablet 10 mg PO TID PRN muscle spasm #30 12/17/22 tabs methylprednisolone 4 mg tablets in See Rx Instructions PO .COMPLEX 12/17/22 a dose pack (Medrol (Ean)) #21 ea Allergies Allergy/AdvReac Type Severity Reaction Status Date / Time No Known Drug Allergies Allergy Verified 09/19/23 20:38 Review of Systems Review of Systems Narrative: per HPI Patient History Family History Grandfather Heart disease Grandmother History of breast cancer Alzheimers disease Social History Smoking Status: Current every day smoker Smoking Status: Current every day smoker tobacco type: cigarettes alcohol intake frequency: holidays/special occasions only Substance Use Type: marijuana Exam Narrative Exam Narrative: GENERAL: Well-developed patient, in mild distress. HEAD: Atraumatic. Normocephalic. EYES: Pupils equal round and reactive. Extraocular motions intact. No scleral icterus. No injection or drainage. ENT: Nose without bleeding, purulent drainage. Throat without erythema, tonsillar hypertrophy or exudate. Airway patent. NECK: Trachea midline. Non tender CARDIOVASCULAR: Regular rate and rhythm without murmurs, gallops, or rubs. RESPIRATORY: Clear to auscultation. Breath sounds equal bilaterally. No wheezes, rales, or rhonchi. GASTROINTESTINAL: Abdomen soft, non-tender, nondistended. EXTREMITIES: No edema or joint tenderness. BACK: Nontender without deformity or crepitance. No flank tenderness. NEURO: AOx3. SKIN: No rash or erythema of visible areas Initial Vital Signs Initial Vital Signs: Vital Signs Temperature 98.5 F 09/19/23 20:33 Pulse Rate 100 H 09/19/23 20:33 Respiratory Rate 16 09/19/23 20:33 Blood Pressure 177/81 H 09/19/23 20:33 Pulse Oximetry 100 09/19/23 20:33 Oxygen Delivery Method Room Air 09/19/23 20:33 Course Orders Ordered: ED Orders 09/19/23 20:37 EKG-12 Lead Stat 09/19/23 21:00 XR chest 1V Stat 09/19/23 21:25 Complete Blood Count AUTO DIFF Stat Comprehensive Metabolic Panel Stat HCG Quantitative /Beta subunit Stat Troponin & CK Cardiac Panel Stat 09/19/23 23:30 Troponin I Stat Vital Signs Vital signs: Vital Signs - 8 hr 09/19/23 20:33 09/19/23 20:59 09/19/23 20:59 Temperature 98.5 F Pulse Rate 100 H 81 Respiratory Rate 16 21 Blood Pressure 177/81 H 132/81 Pulse Oximetry 100 100 Oxygen Delivery Method Room Air 09/19/23 21:00 09/19/23 21:01 09/19/23 21:01 Temperature Pulse Rate 84 84 Respiratory Rate 13 24 Blood Pressure 124/73 Pulse Oximetry 100 99 Oxygen Delivery Method 09/19/23 21:30 09/19/23 21:30 09/19/23 22:00 Temperature Pulse Rate 89 81 Respiratory Rate 17 24 Blood Pressure 117/69 Pulse Oximetry 98 98 Oxygen Delivery Method 09/19/23 22:00 09/19/23 22:30 09/19/23 22:30 Temperature Pulse Rate 80 Respiratory Rate 24 Blood Pressure 113/63 109/67 Pulse Oximetry 97 Oxygen Delivery Method 09/19/23 23:00 09/19/23 23:30 09/20/23 00:00 Temperature Pulse Rate 78 77 77 Respiratory Rate 27 H 23 18 Blood Pressure Pulse Oximetry 96 96 97 Oxygen Delivery Method 09/20/23 00:08 09/20/23 00:08 Temperature Pulse Rate 75 Respiratory Rate 23 Blood Pressure 114/70 Pulse Oximetry 96 Oxygen Delivery Method MDM - Arrhythmia/Palpitations Lab Data Attestation: I reviewed the patient's lab results. 09/19/23 21:25 09/19/23 21:25 Labs: Lab Results 09/19/23 09/19/23 Range/Units 21:25 23:30 WBC 6.9 (4.5-11.0) X10^3/uL RBC 4.17 (4.0-5.2) X10^6/uL Hgb 12.3 (12.0-16.0) g/dL Hct 36.4 (36-46) % MCV 87.3 (80-100) fL MCH 29.4 (26-34) PG MCHC 33.7 (30-36) % RDW 14.4 (11.6-14.8) % Plt Count 228 (150-400) X10^3/uL Neut % (Auto) 62.0 (50-75) % Lymph % (Auto) 27.3 (25-40) % [place] % (Auto) 7.3 (3-14) % Eos % (Auto) 2.9 (2-4) % Baso % (Auto) 0.5 (0-2) % Neut # (Auto) 4300 (2042-5391) /uL Lymph # (Auto) 1900 (0456-8518) /uL [place] # (Auto) 500 (0-900) /uL Eos # (Auto) 200 (0-450) /uL Baso # (Auto) 0 (0-100) /uL Sodium 141 (137-145) mmol/L Potassium 3.6 (3.4-5.1) mmol/L Chloride 109 H (98-107) mmol/L Carbon Dioxide 24 (22-32) mmol/L BUN 10 (7-17) mg/dL Creatinine 0.72 (0.52-1.04) mg/dL Estimated GFR > 60 (>60) mL/min BUN/Creatinine Ratio 13.9 (6-22) Glucose 90 (70-100) mg/dL Calcium 9.0 (8.4-10.2) mg/dL Total Bilirubin 0.3 (0.2-1.3) mg/dL AST 25 (14-36) IU/L ALT 24 (<35) IU/L Alkaline Phosphatase 97 (38-126) U/L Total Creatine Kinase 50 (30-135) U/L Troponin I < 0.012 < 0.012 (0.01-0.034) ng/mL Total Protein 7.2 (6.3-8.2) g/dL Albumin 4.4 (3.5-5.0) g/dL Globulin 2.8 (1.7-4.1) g/dL Albumin/Globulin Ratio 1.6 (1.0-2.8) HCG, Quant < 2.39 mIU/mL Imaging Data Chest x-ray: Radiologist's Impresson: [address] [address] XRay Report Signed Patient: Tracy Cervantes MR#: [id number] : 1985 Acct:[id number] Age/Sex: 37 / F Date of Service: 09/19/23 Loc: ED Accession Number: [id number] Procedure: XR chest 1V Ordering Provider: Armando Thakkar MD PROCEDURE: XR CHEST 1V INDICATIONS: chest pain TECHNIQUE: One view of the chest was acquired. COMPARISON: [facility], , XR CHEST 1V, 07/17/2023, 10:45. FINDINGS: Surgical changes and devices: None. Lungs and pleura: Lungs are clear. No pleural effusions or pneumothorax. Mediastinum: Mediastinal contours appear normal. Heart size is normal. Bones and chest wall: No suspicious bony lesions. Overlying soft tissues appear unremarkable. IMPRESSION: No acute cardiopulmonary abnormality is seen. Dictated by: Ryder Pantoja M.D. on 09/19/2023 at 23:00 Approved by: Ryder Pantoja M.D. on 09/19/2023 at 23:00 ECG Data Attestation: I personally reviewed and interpreted this ECG as follows: Interpretation: Normal sinus rhythm with rate 91, no obvious ST segment elevation or depression changes. MI 160, QRS 90, QTC 430. MDM Narrative Medical decision making narrative: 37-year-old with intermittent palpitation and heart racing sensation for the last 1 month, awaiting cardiac monitoring study, 30 minutes duration of faster harder heartbeat sensation tonight that resolved spontaneously, no associated syncope or presyncope. Screening EKG unremarkable, including MI interval, no WPW changes, no QTC prolongation, no ischemic changes. Labs including electrolytes unremarkable. Initial troponin and subsequent troponin negative. Chest x-ray unremarkable. No ectopy or abnormal rhythm while on the monitor here in the emergency department. Patient encouraged to continue to avoid decongestant medications, caffeine products, stimulants, alcohol. Follow up for screw machine set up operator testing as planned. Return precautions discussed Discharge Plan Departure Patient Disposition: Home Clinical Impression: Heart palpitations Activity Restrictions/Additional Instructions: Intermittent heart palpitation, fast heart rate sensation, heart pounding sensation for the last month. Awaiting cardiac monitoring outpatient study. Today with 30 minutes faster harder more intense symptoms. She did not pass out or feel like you are going to pass out. Screening EKG unremarkable, blood testing unremarkable. No ectopy your unusual rhythms while on the monitor for multiple hours here in the emergency department. Continue to follow up for your monitoring study as an outpatient for now. Return to this/nearest emergency department for any change worsening symptoms or any concerns prior Prescriptions: No Action multivitamin Tablet 1 tab PO DAILY polyethylene glycol 3350 [Miralax] 17 gram Powder In Packet 17 g PO DAILY PRN (Reason: Constipation) methylprednisolone [Medrol (Ean)] 4 mg tablets,dose pack See Rx Instructions .ROUTE .COMPLEX Qty: 21 0RF Rx Instructions: orally per package directions cyclobenzaprine 10 mg tablet 10 mg PO TID PRN (Reason: muscle spasm) Qty: 30 0RF Referrals: Kerry Lake PA-C [Primary Care Provider] - Stand Alone Forms: Patient Portal/API
[2023-09-20] VITALS: PULSE 77; RESP 18; O2SAT 97
[2023-09-20] LABS: Troponin I < 0.012 ng/mL (0.01-0.034)
[2023-09-20 00:08] VITALS: BP 114/70; PULSE 75; RESP 23; O2SAT 96
== END 2023-09-20 00:19 | disposition home or self-care (01) ==
PROVIDERS: Emergency Provider Emergency Medicine; PCP Physician Assistant Medical
DX: R00.2 Palpitations (principal); R07.9 Chest pain, unspecified
CPT/HCPCS: 36415; 71045; 80053; 82550; 84484; 84702; 85025; 93005; 99283; 99284

== ENCOUNTER 2023-10-19 00:27 | Emergency (ER) | payer OTHER, MEDICAID, SELFPAY ==
--- NOTE | 2023-10-19 00:30 | EKG_ITS ---
[address] [address] Test Date: 2023-10-19 Pat Name: Tracy Cervantes Department: [facility] Room: Gender: Female Medical Support Assistant: FRENCH : 1985 Requested By: Order Number: [id number] Reading MD: Tyler Cope Measurements Intervals [place] Rate: 77 P: 62 FL: 186 QRS: 34 QRSD: 92 T: 54 QT: 382 QTc: 432 Interpretive Statements Normal sinus rhythm Electronically Signed On 10-22-2023 15:17:33 PDT by Tyler Cope
[2023-10-19 00:35] VITALS: BP 136/72; PULSE 77; RESP 18; TEMP 36.6; O2SAT 98; BMI 36.3
[2023-10-19 00:52] VITALS: PULSE 78; RESP 20; O2SAT 96
--- NOTE | 2023-10-19 00:52 | ED.CHESTPAIN ---
HPI - Chest Pain General Chief Complaint: Chest Pain Stated Complaint: Rapid heart beat, abd pain Time Seen by Provider: 10/19/23 00:29 Source: patient Mode of arrival: Ambulatory Limitations: no limitations History of Present Illness HPI narrative: 30-year-old female who has been having issues with palpitations. Has seen her primary doctor's office. Has had a Holter monitor. Has been told that she just occasionally has episodes of fast heart rate but it is normal rhythm. She was yet to see Cardiology. She was here this evening because she had symptoms that were consistent with a prior history of palpitations however in addition to this she stated that she had some abdominal pain which then she describes as ?tingling/palpitations/pulsations in her abdomen. No change in bowel habits. No urinary symptoms. No vaginal bleeding. No fevers. No nausea or vomiting. Has not tried anything for symptoms prior to arrival. Related Data Home Medications Medication Instructions Recorded Confirmed multivitamin 1 tab PO DAILY 03/25/19 03/25/19 polyethylene glycol 3350 17 gram 17 g PO DAILY PRN Constipation 03/25/19 03/25/19 oral powder packet (Miralax) Previous Rx's Medication Instructions Recorded cyclobenzaprine 10 mg tablet 10 mg PO TID PRN muscle spasm #30 12/17/22 tabs methylprednisolone 4 mg tablets in See Rx Instructions PO .COMPLEX 12/17/22 a dose pack (Medrol (Ean)) #21 ea propranolol 10 mg tablet 10 mg PO BID PRN Palpitations #30 10/19/23 tabs Allergies Allergy/AdvReac Type Severity Reaction Status Date / Time No Known Drug Allergies Allergy Verified 09/19/23 20:38 Review of Systems Review of Systems Narrative: See HPI Patient History Family History Grandfather Heart disease Grandmother History of breast cancer Alzheimers disease Social History Smoking Status: Current every day smoker Smoking Status: Current every day smoker tobacco type: cigarettes alcohol intake frequency: holidays/special occasions only Substance Use Type: marijuana Exam Initial Vital Signs Initial Vital Signs: Vital Signs Temperature 97.9 F 10/19/23 00:35 Pulse Rate 77 10/19/23 00:35 Respiratory Rate 18 10/19/23 00:35 Blood Pressure 136/72 10/19/23 00:35 Pulse Oximetry 98 10/19/23 00:35 Oxygen Delivery Method Room Air 10/19/23 00:35 Const General: cooperative, comfortable and No ill appearing HENMT Head: normal to inspection and normocephalic Resp Effort & Inspection: normal respiratory effort Auscultation: clear to auscultation bilaterally Cardio Rate: regular rate Rhythm: regular rhythm GI Inspection: normal to inspection and non-distended Palpation: soft, No firm, No guarding and No tender Skin General: no rashes or lesions noted Neuro General: patient alert, patient awake and moves all extremities Extrem General: capillary refill normal Course Orders Ordered: ED Orders 10/19/23 00:30 Complete Blood Count AUTO DIFF Stat Comprehensive Metabolic Panel Stat Lipase Stat EKG-12 Lead Stat Vital Signs Vital signs: Vital Signs - 8 hr 10/19/23 00:35 10/19/23 00:52 10/19/23 01:00 Temperature 97.9 F Pulse Rate 77 78 76 Respiratory Rate 18 20 24 Blood Pressure 136/72 Pulse Oximetry 98 96 95 Oxygen Delivery Method Room Air 10/19/23 01:26 10/19/23 01:26 10/19/23 01:30 Temperature Pulse Rate 74 72 Respiratory Rate 25 H 23 Blood Pressure 110/60 Pulse Oximetry 96 95 Oxygen Delivery Method 10/19/23 01:30 Temperature Pulse Rate Respiratory Rate Blood Pressure 110/60 Pulse Oximetry Oxygen Delivery Method MDM - Chest Pain Lab Data Attestation: I reviewed the patient's lab results. 10/19/23 00:45 10/19/23 00:45 Labs: Lab Results 10/19/23 Range/Units 00:45 WBC 9.7 (4.5-11.0) X10^3/uL RBC 4.05 (4.0-5.2) X10^6/uL Hgb 11.9 L (12.0-16.0) g/dL Hct 34.9 L (36-46) % MCV 86.1 (80-100) fL MCH 29.4 (26-34) PG MCHC 34.2 (30-36) % RDW 14.6 (11.6-14.8) % Plt Count 237 (150-400) X10^3/uL Neut % (Auto) 62.4 (50-75) % Lymph % (Auto) 28.3 (25-40) % [place] % (Auto) 6.3 (3-14) % Eos % (Auto) 2.6 (2-4) % Baso % (Auto) 0.4 (0-2) % Neut # (Auto) 6100 (1558-9844) /uL Lymph # (Auto) 2700 (2472-1971) /uL [place] # (Auto) 600 (0-900) /uL Eos # (Auto) 300 (0-450) /uL Baso # (Auto) 0 (0-100) /uL Sodium 137 (137-145) mmol/L Potassium 3.8 (3.4-5.1) mmol/L Chloride 107 (98-107) mmol/L Carbon Dioxide 20 L (22-32) mmol/L BUN 10 (7-17) mg/dL Creatinine 0.69 (0.52-1.04) mg/dL Estimated GFR > 60 (>60) mL/min BUN/Creatinine Ratio 14.5 (6-22) Glucose 101 H (70-100) mg/dL Calcium 8.8 (8.4-10.2) mg/dL Total Bilirubin 0.3 (0.2-1.3) mg/dL AST 22 (14-36) IU/L ALT 16 (<35) IU/L Alkaline Phosphatase 110 (38-126) U/L Total Protein 6.8 (6.3-8.2) g/dL Albumin 4.4 (3.5-5.0) g/dL Globulin 2.4 (1.7-4.1) g/dL Albumin/Globulin Ratio 1.8 (1.0-2.8) Lipase 152 (23-300) U/L Point of Care Testing Test Results Negative Urine Dip Bedside Urine Glucose Negative Bedside Urine Bilirubin - Negative Bedside Urine Ketone - Negative Urine Specific [place] 1.005 Bedside Urine Occult Blood - Negative Bedside Urine pH 6 Bedside Urine Protein - Negative Bedside Urine Urobilinogen - Negative Bedside Urine Nitrite - Negative Bedside Urine Leukocytes - Negative Esterase ECG Data Attestation: I personally reviewed and interpreted this ECG as follows: Interpretation: Sinus rhythm Ventricular rate is 77 Normal axis Normal QRS Normal QTC No ST T wave changes MDM Narrative Medical decision making narrative: Sinus rhythm on the EKG. Medical. Exam is unremarkable. Not hypertensive. Not hypotensive. No pulsating mass of the abdomen. Low suspicion for aneurysm. I do suspect that there is an anxiety component to the patient's symptoms. Will send home with a prescription for propranolol that she can use as needed. She was given return precautions and follow-up instructions. She expressed understanding and agreement with plan. Discharge Plan Departure Patient Disposition: Home Clinical Impression: Palpitations Instructions: DI for Arrhythmias Activity Restrictions/Additional Instructions: I do recommend that you contact your primary care doctor for follow-up and to discuss the indication for referral to see Cardiology. Return to the emergency department for new or worsening symptoms. Prescriptions: New propranolol 10 mg tablet 10 mg PO BID PRN (Reason: Palpitations) Qty: 30 0RF No Action multivitamin Tablet 1 tab PO DAILY polyethylene glycol 3350 [Miralax] 17 gram Powder In Packet 17 g PO DAILY PRN (Reason: Constipation) methylprednisolone [Medrol (Ean)] 4 mg tablets,dose pack See Rx Instructions .ROUTE .COMPLEX Qty: 21 0RF Rx Instructions: orally per package directions cyclobenzaprine 10 mg tablet 10 mg PO TID PRN (Reason: muscle spasm) Qty: 30 0RF Referrals: Kerry Lake PA-C [Primary Care Provider] - Stand Alone Forms: Patient Portal/API
[2023-10-19 01:00] VITALS: PULSE 76; RESP 24; O2SAT 95
[2023-10-19 01:00] LABS: Add Manual Diff / Slide Review NO; Basophils Absolute Auto 0 /uL (0-100); Basophils Percent Auto 0.4 % (0-2); Eosinophils Absolute Auto 300 /uL (0-450); Eosinophils Percent Auto 2.6 % (2-4); Hematocrit 34.9 % (36-46); Hemoglobin 11.9 g/dL (12.0-16.0); Lymphocytes Absolute Auto 2700 /uL (1100-4500); Lymphocytes Percent Auto 28.3 % (25-40); Mean Corpuscular HGB Conc 34.2 % (30-36); Mean Corpuscular Hemoglobin 29.4 PG (26-34); Mean Corpuscular Volume 86.1 fL (80-100); Monocytes Absolute Auto 600 /uL (0-900); Monocytes Percent Auto 6.3 % (3-14); Neutrophils Absolute Auto 6100 /uL (1500-7000); Neutrophils Percent Auto 62.4 % (50-75); Platelet Count 237 X10^3/uL (150-400); Red Blood Cell Count 4.05 X10^6/uL (4.0-5.2); Red Cell Distribution Width 14.6 % (11.6-14.8); White Blood Cell Count 9.7 X10^3/uL (4.5-11.0)
[2023-10-19 01:12] LABS: Alanine Aminotransferase 16 IU/L (<35); Albumin 4.4 g/dL (3.5-5.0); Albumin Globulin Ratio 1.8 (1.0-2.8); Alkaline Phosphatase 110 U/L (38-126); Aspartate Aminotransferase 22 IU/L (14-36); BUN Creatinine Ratio 14.5 (6-22); Bilirubin Total 0.3 mg/dL (0.2-1.3); Blood Urea Nitrogen 10 mg/dL (7-17); Calcium 8.8 mg/dL (8.4-10.2); Carbon Dioxide 20 mmol/L (22-32); Chloride 107 mmol/L (98-107); Estimated Glomerular Filt Rate > 60 mL/min (>60); Globulin 2.4 g/dL (1.7-4.1); Glucose 101 mg/dL (70-100); HEMOLYSIS < 15 (0-50); Lipase 152 U/L (23-300); Potassium 3.8 mmol/L (3.4-5.1); Sodium 137 mmol/L (137-145); Total Protein 6.8 g/dL (6.3-8.2)
[2023-10-19 01:26] VITALS: BP 110/60; PULSE 74; RESP 25; O2SAT 96
[2023-10-19 01:30] VITALS: BP 110/60; PULSE 72; RESP 23; O2SAT 95
== END 2023-10-19 01:42 | disposition home or self-care (01) ==
PROVIDERS: Emergency Provider Emergency Medicine; PCP Physician Assistant Medical
DX: R00.2 Palpitations (principal)
CPT/HCPCS: 36415; 80053; 81003; 81025; 83690; 85025; 93005; 99283; 99284

== ENCOUNTER 2024-06-12 17:06 | Emergency (ER) | payer OTHER, SELFPAY ==
[2024-06-12 17:08] VITALS: BP 131/84; PULSE 83; RESP 18; TEMP 36.5; O2SAT 99; BMI 37.1
--- NOTE | 2024-06-12 17:28 | ED_ITS ---
HPI - SOB/Dyspnea General Chief Complaint: Shortness of Breath/Dyspnea Stated Complaint: side px, sob Time Seen by Provider: 06/12/24 17:28 Source: patient Mode of arrival: Ambulatory Limitations: no limitations History of Present Illness HPI Narrative: Patient with past medical history of anxiety depression, comes into the ED from home for evaluation of cough, she states that she just started Lexapro for her anxiety and depression, she states that today she was coughing put her arm around her mouth and thinks she inhaled something. She states that she had a coughing fit and was worried that something might have been ?wrong. Patient at this time not having any symptoms at this time, no headache visual disturbances chest pain shortness breath fever chills nausea vomiting abdominal pain or any other GI/ symptoms. She says she just wants to be checked out, and in wanting something for her anxiety. Related Data Home Medications Medication Instructions Recorded Confirmed multivitamin 1 tab PO DAILY 03/25/19 03/25/19 polyethylene glycol 3350 17 gram 17 g PO DAILY PRN Constipation 03/25/19 03/25/19 oral powder packet (Miralax) Previous Rx's Medication Instructions Recorded cyclobenzaprine 10 mg tablet 10 mg PO TID PRN muscle spasm #30 12/17/22 tabs methylprednisolone 4 mg tablets in See Rx Instructions PO .COMPLEX 12/17/22 a dose pack (Medrol (Ean)) #21 ea propranolol 10 mg tablet 10 mg PO BID PRN Palpitations #30 10/19/23 tabs albuterol sulfate 90 mcg/actuation 2 puff inhalation QID PRN 06/12/24 aerosol inhaler shortness of breath or wheezing #6.7 grams Allergies Allergy/AdvReac Type Severity Reaction Status Date / Time No Known Drug Allergies Allergy Verified 09/19/23 20:38 Review of Systems Review of Systems Narrative: General: Denies fever, chills, weight loss HEENT: Denies headache, eye drainage, eye irritation, head trauma, sore throat, voice change Cardiovascular: Denies any chest pain, palpitations, tachycardia Respiratory: Positive cough, Denies any shortness of breath, wheeze, stridor GI/: Denies any abdominal pain, nausea, vomiting, diarrhea, bright red blood per rectum, melanotic stools, urinary frequency, urinary retention, dysuria, hematuria MSK: Denies any joint pain, muscle pains, swelling Skin: Denies any rashes, lesions, discoloration Neuro: Denies any headache, lightheadedness, dizziness, fainting, weakness Psych: Positive anxiety, Denies SI/HI Patient History Family History Grandfather Heart disease Grandmother History of breast cancer Alzheimers disease Social History Smoking Status: Current every day smoker Smoking Status: Current every day smoker tobacco type: cigarettes alcohol intake frequency: holidays/special occasions only Exam Narrative Exam Narrative: General: Cooperative, well-developed, not in acute distress HEENT: Normocephalic, atraumatic, PERRLA, normal sclera, eyelids normal Neck: Active full range of motion, atraumatic Chest: Normal to inspection, negative crepitus, no overlying erythema ecchymosis Respiratory: Normal respiratory effort, not in acute respiratory distress, clear to auscultation bilaterally negative cough, wheeze, tachypnea, rhonchi, rales Cardiology: Regular rate rhythm negative gallop, murmur, rubs GI/: No tenderness to palpation, soft, non rigid, normal to inspection, exam deferred MSK: Full active range of motion in all 4 extremities, atraumatic, no tenderness to palpation of any bony prominences Skin: No rashes or lesions noted Neuro: Alert awake oriented x3, moves all 4 extremities spontaneously, cranial nerves intact, able to answer all questions appropriately follows commands appropriately Psych: Patient tearful, Cooperative, negative suicidal or homicidal ideations Initial Vital Signs Initial Vital Signs: Vital Signs Temperature 97.7 F 06/12/24 17:08 Pulse Rate 83 06/12/24 17:08 Respiratory Rate 18 06/12/24 17:08 Blood Pressure 131/84 06/12/24 17:08 Pulse Oximetry 99 06/12/24 17:08 Oxygen Delivery Method Room Air 06/12/24 17:08 Course Vital Signs Vital signs: Vital Signs - 8 hr 06/12/24 17:08 Temperature 97.7 F Pulse Rate 83 Respiratory Rate 18 Blood Pressure 131/84 Pulse Oximetry 99 Oxygen Delivery Method Room Air MDM - SOB/Dyspnea Differential Diagnosis Differential diagnosis: Likely other (Bronchitis, anxiety, pneumonitis) MDM Narrative Medical decision making narrative: 38-year-old female with a history of anxiety depression comes into the ED from home for evaluation of cough, she states that about an hour ago she was coughing put her arm over her mouth and thinks she may have inhaled a piece of cotton or ?something outside. She states that she had a coughing fit that lasted for a few seconds and was scared that something was wrong. She states that she just started her Lexapro for her anxiety and depression and is stating that she feels like she is having a slight panic attack, did give 0.5 mg p.o. Ativan here in the emergency department. Patient is speaking in full sentences protecting airway no voice changes no stridor no trismus lung sounds are clear bilaterally to auscultation, there is no need for supplemental oxygen here in the emergency department, there is no indication for chest x-ray or further workup at this time. We will however provide patient with albuterol inhaler for possible bronchospastic symptoms. Instructed follow up with her primary care doctor in outpatient setting, she was given strict return precautions she verbalized understanding of this and agrees to being discharged home with outpatient follow up Discharge Plan Departure Patient Disposition: Home Clinical Impression: Cough Activity Restrictions/Additional Instructions: Please follow up with the primary care doctor Please read the discharge instructions sheet carefully and bring all papers to all doctor follow-up visits, as it may contain information that your doctor may want to see. Disease processes change and evolve, if your symptoms worsen or if you develop any new symptoms that are concerning to you please return for evaluation. Your evaluation today does not show any evidence of any life- threatening/serious illnesses requiring admission to the hospital or surgery. Please follow-up with your doctor for re-evaluation in approximately 1 day. Seek immediate medical attention for any worrisome symptoms. *If you do not have a primary care provider please contact the [facility] Resource line at [phone]. They will ask some questions about your medical history and help get you set up with a doctor in the community. Prescriptions: New albuterol sulfate 90 mcg/actuation HFA aerosol inhaler 2 puff inhalation QID PRN (Reason: shortness of breath or wheezing) Qty: 6.7 0RF No Action multivitamin Tablet 1 tab PO DAILY polyethylene glycol 3350 [Miralax] 17 gram Powder In Packet 17 g PO DAILY PRN (Reason: Constipation) methylprednisolone [Medrol (Ean)] 4 mg tablets,dose pack See Rx Instructions .ROUTE .COMPLEX Qty: 21 0RF Rx Instructions: orally per package directions cyclobenzaprine 10 mg tablet 10 mg PO TID PRN (Reason: muscle spasm) Qty: 30 0RF propranolol 10 mg tablet 10 mg PO BID PRN (Reason: Palpitations) Qty: 30 0RF Referrals: Kerry Lake PA-C [Primary Care Provider] - Stand Alone Forms: Patient Portal/API/Survey
[2024-06-12] MEDS: LORazepam 0.5 MG TABLET PO (17:45)
[2024-06-12 17:47] VITALS: BP 146/70
== END 2024-06-12 17:48 | disposition home or self-care (01) ==
PROVIDERS: Emergency Provider Student in an Organized Health Care Education/Training Program; PCP Physician Assistant Medical
DX: R05.9 Cough, unspecified (principal); F41.9 Anxiety disorder, unspecified
CPT/HCPCS: 99283

== ENCOUNTER 2024-08-11 19:33 | Emergency (ER) | payer OTHER, SELFPAY ==
[2024-08-11 19:55] VITALS: BP 130/74; PULSE 82; RESP 16; TEMP 36.8; O2SAT 97; BMI 37.9
--- NOTE | 2024-08-11 23:41 | ED_ITS ---
HPI - Extremity Problem General Chief complaint: Extremity Problem,Nontraumatic Stated complaint: vein in the leg popping out not bleeding Time Seen by Provider: 08/11/24 23:35 Source: patient Mode of arrival: Ambulatory History of Present Illness HPI Narrative: Otherwise healthy 38-year-old woman with moderate varicose veins her left leg has been getting worse over the last couple of days. She is noticing medial aspect of the left thigh that is getting more painful and there is a hard painful bump near the distal portion of the significant dark paucity. No trauma, extending redness, drainage Related Data Home Medications ?Medication ?Instructions ?Recorded ?Confirmed multivitamin 1 tab PO DAILY 03/25/1902/27 polyethylene glycol 3350 17 gram 17 g PO DAILY PRN Con stipation 03/25/19 03/25/19 oral powder packet (Miralax) Previous Rx's ?Medication ?Instructions ?Recorded cyclobenzaprine 10 mg tablet 10 mg PO TID PRN muscle s pasm #30 12/17/22 tabs methylprednisolone 4 mg tablets in See Rx Instructions PO .COMPLEX 12/17/22 a dose pack (Medrol (Ean)) #21 ea propranolol 10 mg tablet 10 mg PO BID PRN Palpitation s #30 10/19/23 tabs albuterol sulfate 90 mcg/actuation 2 puff inhalation Q ID PRN 06/12/24 aerosol inhaler shortness of breath or wheez ing #6.7 grams Allergies Allergy/AdvReac Type Severity Reaction Status Date / Time No Known Drug Allergies Allergy Verified 08/11/24 19:55 Review of Systems Review of Systems Narrative: Pertinent positive and negative findings as per HPI Patient History Family History Grandfather Heart disease Grandmother History of breast cancer Alzheimers disease tobacco type: cigarettes alcohol intake frequency: holidays/special occasions only Exam Initial Vital Signs Initial Vital Signs: Vital Signs Temperature 98.2 F 08/11/24 19:55 Pulse Rate 82 08/11/24 19:55 Respiratory Rate 16 08/11/24 19:55 Blood Pressure 130/74 08/11/24 19:55 Pulse Oximetry 97 08/11/24 19:55 Oxygen Delivery Method Room Air 08/11/24 19:55 General: Alert appropriate in no acute distress Respiratory: Able to speak in full sentences, no obvious respiratory distress Skin: No obvious rashes, warm and dry Neurologic: Grossly intact no obvious asymmetries or abnormalities Psych: appropriate insight and affect, cooperative Extremity: Significant varicose veins long the left leg more so than the right. The left thigh she has a superficial thrombophlebitis in the distal portion of 1 of the more prominent varicosities. Course Vital Signs Vital signs: Vital Signs - 8 hr 08/11/24 19:55 Temperature 98.2 F Pulse Rate 82 Respiratory Rate 16 Blood Pressure 130/74 Pulse Oximetry 97 Oxygen Delivery Method Room Air MDM - Extremity (Nontraumatic) MDM Narrative Medical decision making narrative: 38-year-old woman with increasing pain associated with varicose vein. She has a small thrombophlebitis/inflamed area in the distal portion of the more tortuous varicosity appreciated on inner aspect of the left thigh. This is not an in fection, a deep vein thrombosis or life-threatening abnormality that would require workup or hospitalization I have placed in [place]ínez wrap around her thigh for compression purposes and comfort. Neurovascularly intact pre and post placement of the [place] wrap with significant reduction and overall pain post placement. We talked about nonsteroidals including ibuprofen and even a baby aspirin to try and prevent the thrombophlebitis from expanding. Strongly recommended compression socks and he also discussed outpatient surgical consultation for treatment of her varicose veins as these are going to continue to be a problem for her for a number of years. She is safe for discharge Discharge Plan Departure Patient Disposition: Home Clinical Impression: Varicose vein of leg Qualifiers: Varicose vein complication: pain Laterality: left Qualified Code(s): I83.812 - Varicose veins of left lower extremity with pain Superficial thrombophlebitis Qualifiers: Superficial thrombophlebitis-Involved body area: lower extremity Laterality: left Qualified Code(s): I80.02 - Phlebitis and thrombophlebitis of superficial vessels of left lower extremity Instructions: DI for Varicose Veins Activity Restrictions/Additional Instructions: Thank you for coming in today You have fairly significant varicose veins and may well benefit from outpatient surgical treatment of these for comfort as well as overall health. Please talk to your primary care doctor about this In the meantime, with the vein on the inside of your left thigh, there is a small portion of it that has developed a blood clot. This is called a superficial thrombophlebitis. This is not the type of blood clot in your leg that will cause any life-threatening problems Using compression wrap with your thigh for comfort can be helpful. I would recommend compression socks, I think you will find that you are more comfortable by the end of the day. Using 400 mg of ibuprofen (2 [id number] pills) and 1 Tylenol every 6 hours can be very helpful in controlling pain. I would recommend buying aspirin, and using a single aspirin a day until the blood clot has improved. Heat to the area and gentle massage can help break the blood cut down If you find that you are getting worse or develop any new symptoms, please feel free to return to the emergency department for further evaluation. Prescriptions: No Action multivitamin Tablet 1 tab PO DAILY polyethylene glycol 3350 [Miralax] 17 gram Powder In Packet 17 g PO DAILY PRN (Reason: Constipation) methylprednisolone [Medrol (Ean)] 4 mg tablets,dose pack See Rx Instructions .ROUTE .COMPLEX Qty: 21 0RF Rx Instructions: orally per package directions cyclobenzaprine 10 mg tablet 10 mg PO TID PRN (Reason: muscle spasm) Qty: 30 0RF propranolol 10 mg tablet 10 mg PO BID PRN (Reason: Palpitations) Qty: 30 0RF albuterol sulfate 90 mcg/actuation HFA aerosol inhaler 2 puff inhalation QID PRN (Reason: shortness of breath or wheezing) Qty: 6.7 0RF Referrals: Kerry Lake PA-C [Primary Care Provider, Medical] Stand Alone Forms: Patient Portal/API
[2024-08-11] MEDS: ASPIRIN 81 MG CHEW TAB 324 MG PO (23:56)
== END 2024-08-11 23:56 | disposition home or self-care (01) ==
PROVIDERS: Emergency Provider Emergency Medicine; PCP Physician Assistant Medical
DX: I83.812 Varicose veins of left lower extremity with pain (principal); I80.02 Phlebitis and thrombophlebitis of superficial vessels of left lower extremity
CPT/HCPCS: 99283

== ENCOUNTER 2024-08-12 21:36 | Emergency (ER) | payer OTHER, SELFPAY ==
[2024-08-12 21:44] VITALS: BP 123/83; PULSE 82; RESP 17; TEMP 36.9; O2SAT 98; BMI 37.9
--- NOTE | 2024-08-12 21:53 | DI.US.S_ITS ---
PROCEDURE: US PERIPH VENOUS LOW EXTREM LT INDICATIONS: LEFT CALF PAIN TECHNIQUE: Real-time imaging, as well as color and pulse Doppler interrogation, were performed of the lower extremity deep veins from the inguinal ligament to the popliteal fossa, with documentation of the visualized calf veins. COMPARISON: None. FINDINGS: The common femoral, femoral, popliteal, and the visualized calf veins are normally compressible, and free of intraluminal thrombus. Color and pulse Doppler demonstrate normal phasic intraluminal flow. There is normal augmentation response to distal compression maneuver. Multiple superficial varicosities. No superficial thrombophlebitis. IMPRESSION: No findings of lower extremity deep venous thrombosis. Dictated by: Ryder Pantoja M.D. on 08/12/2024 at 23:16 Approved by: Ryder Pantoja M.D. on 08/12/2024 at 23:17
--- NOTE | 2024-08-13 01:36 | PC.NURSE ---
Pt states that she was seen yesterday with a superficial clot, called her PCP and suggested her to be re-evaluated.
--- NOTE | 2024-08-13 02:19 | ED_ITS ---
HPI - Extremity Problem General Chief complaint: Extremity Problem,Nontraumatic Stated complaint: blood clot in left leg s/b foot pain Time Seen by Provider: 08/13/24 01:42 Source: patient Mode of arrival: Ambulatory History of Present Illness HPI Narrative: 38-year-old woman with varicose veins was seen yesterday with a small superficial phlebitis in 1 of the veins in the upper left thigh. We placed an Martínez wrap around her upper thigh for compression which is quite helpful. She was noticing that her left calf and foot were a bit more swollen which she presumed was due to the compression wrap on the upper thigh. She called her doctor's office and they recommended she come to the emergency department for ultrasound. She states the pain is better she has done some research on surgery for varicose veins and overall is doing better than she was yesterday. Related Data Home Medications ?Medication ?Instructions ?Recorded ?Confirmed multivitamin 1 tab PO DAILY 03/25/1902/27 polyethylene glycol 3350 17 gram 17 g PO DAILY PRN Con stipation 03/25/19 03/25/19 oral powder packet (Miralax) Previous Rx's ?Medication ?Instructions ?Recorded cyclobenzaprine 10 mg tablet 10 mg PO TID PRN muscle s pasm #30 12/17/22 tabs methylprednisolone 4 mg tablets in See Rx Instructions PO .COMPLEX 12/17/22 a dose pack (Medrol (Ean)) #21 ea propranolol 10 mg tablet 10 mg PO BID PRN Palpitation s #30 10/19/23 tabs albuterol sulfate 90 mcg/actuation 2 puff inhalation Q ID PRN 06/12/24 aerosol inhaler shortness of breath or wheez ing #6.7 grams Allergies Allergy/AdvReac Type Severity Reaction Status Date / Time No Known Drug Allergies Allergy Verified 08/11/24 19:55 Patient History Family History Grandfather Heart disease Grandmother History of breast cancer Alzheimers disease tobacco type: cigarettes alcohol intake frequency: holidays/special occasions only Exam Initial Vital Signs Initial Vital Signs: Vital Signs Temperature 98.5 F 08/12/24 21:44 Pulse Rate 82 08/12/24 21:44 Respiratory Rate 17 08/12/24 21:44 Blood Pressure 123/83 08/12/24 21:44 Pulse Oximetry 98 08/12/24 21:44 Oxygen Delivery Method Room Air 08/12/24 21:44 General: Alert appropriate in no acute distress Respiratory: Able to speak in full sentences, no obvious respiratory distress Skin: No obvious rashes, warm and dry Neurologic: Grossly intact no obvious asymmetries or abnormalities Psych: appropriate insight and affect, cooperative Extremity: Still with moderate varicosities. The area of thrombophlebitis appreciated in the upper thigh yesterday seems significantly improved after having a compression wrap in place today. The rapid now been off for a number of hours with her leg elevated and there is no different see the amount of lower extremity edema in her legs at this time. Course Orders Ordered: ED Orders 08/12/24 21:53 [facility] venous low extrem lt Stat Vital Signs Vital signs: Vital Signs - 8 hr 08/12/24 21:44 Temperature 98.5 F Pulse Rate 82 Respiratory Rate 17 Blood Pressure 123/83 Pulse Oximetry 98 Oxygen Delivery Method Room Air MDM - Extremity (Nontraumatic) MDM Narrative Medical decision making narrative: 38-year-old woman with varicose veins. Varicosity in the upper left thigh with Martínez wrap used for compression which did seem to help. She woke morning showed just increased swelling in her left calf and foot that she assumed was secondary to the upper compression wrap. She was instructed to come to the emergency department for ultrasound which was ordered. There was no evidence of DVT and specifically noted is patent varicosities. Findings are reviewed with the patient and reassurance given. The swelling has essentially resolved once the upper thigh compression wrap was removed. We discussed side effects of using the compression wrap than dealing with the swelling. She will try to balance the 2. At this point she is safe for discharge. Discharge Plan Departure Patient Disposition: Home Clinical Impression: Varicose vein of leg Qualifiers: Varicose vein complication: pain Laterality: left Qualified Code(s): I83.812 - Varicose veins of left lower extremity with pain Prescriptions: No Action multivitamin Tablet 1 tab PO DAILY polyethylene glycol 3350 [Miralax] 17 gram Powder In Packet 17 g PO DAILY PRN (Reason: Constipation) methylprednisolone [Medrol (Ean)] 4 mg tablets,dose pack See Rx Instructions .ROUTE .COMPLEX Qty: 21 0RF Rx Instructions: orally per package directions cyclobenzaprine 10 mg tablet 10 mg PO TID PRN (Reason: muscle spasm) Qty: 30 0RF propranolol 10 mg tablet 10 mg PO BID PRN (Reason: Palpitations) Qty: 30 0RF albuterol sulfate 90 mcg/actuation HFA aerosol inhaler 2 puff inhalation QID PRN (Reason: shortness of breath or wheezing) Qty: 6.7 0RF Referrals: Kerry Lake PA-C [Primary Care Provider, Medical] Stand Alone Forms: Patient Portal/API
== END 2024-08-13 02:27 | disposition home or self-care (01) ==
PROVIDERS: Emergency Provider Emergency Medicine; PCP Physician Assistant Medical
DX: I83.812 Varicose veins of left lower extremity with pain (principal)
CPT/HCPCS: 93971; 99281; 99283

== ENCOUNTER 2024-09-12 14:39 | Emergency (ER) | payer OTHER, SELFPAY ==
[2024-09-12 14:46] VITALS: BP 134/81; PULSE 83; RESP 16; TEMP 36.8; O2SAT 97
--- NOTE | 2024-09-12 18:33 | ED_ITS ---
HPI - Extremity Injury (Lower) General Chief Complaint: Extremity Injury, Lower Stated Complaint: Upper Left superficial blood clot, getting worse Time Seen by Provider: 09/12/24 18:00 History of Present Illness HPI Narrative: 38-year-old female seen a few weeks ago for left lower leg pain and swelling diagnosed with varicose veins and has been taking baby aspirin daily reports today feeling the veins have been come more prominent and more sore and wanted to come in to make sure that there was nothing else going on. She does have a appointment with the vascular surgeon on Sunday otherwise denies chest pain shortness of breath dyspnea on exertion or recent long distance travel. Other than what is stated 14 point review of system is negative. Related Data Home Medications ?Medication ?Instructions ?Recorded ?Confirmed multivitamin 1 tab PO DAILY 03/25/1902/27 polyethylene glycol 3350 17 gram 17 g PO DAILY PRN Con stipation 03/25/19 03/25/19 oral powder packet (Miralax) Previous Rx's ?Medication ?Instructions ?Recorded cyclobenzaprine 10 mg tablet 10 mg PO TID PRN muscle s pasm #30 12/17/22 tabs methylprednisolone 4 mg tablets in See Rx Instructions PO .COMPLEX 12/17/22 a dose pack (Medrol (Ean)) #21 ea propranolol 10 mg tablet 10 mg PO BID PRN Palpitation s #30 10/19/23 tabs albuterol sulfate 90 mcg/actuation 2 puff inhalation Q ID PRN 06/12/24 aerosol inhaler shortness of breath or wheez ing #6.7 grams Allergies Allergy/AdvReac Type Severity Reaction Status Date / Time No Known Drug Allergies Allergy Verified 08/11/24 19:55 Review of Systems Review of Systems ROS Unobtainable: All systems reviewed & are unremarkable except as noted in HPI and below Patient History Family History Grandfather Heart disease Grandmother History of breast cancer Alzheimers disease tobacco type: cigarettes alcohol intake frequency: holidays/special occasions only Exam Narrative Exam Narrative: GENERAL: [38] year old patient appears stated age. Well-developed patient, in mild distress. HEAD: Atraumatic. Normocephalic. EYES: Pupils equal round and reactive. Extraocular motions intact. No scleral icterus. No injection or drainage. ENT: Nose without bleeding, purulent drainage. Throat without erythema, tonsillar hypertrophy or exudate. Airway patent. NECK: Trachea midline. Non tender CARDIOVASCULAR: Regular rate and rhythm without murmurs, gallops, or rubs. RESPIRATORY: Clear to auscultation. Breath sounds equal bilaterally. No wheezes, rales, or rhonchi. GASTROINTESTINAL: Abdomen soft, non-tender, nondistended. EXTREMITIES: No edema or joint tenderness. Left lower leg prominent varicose vein in the medial thigh medial calf region motor sensory intact +2 DP +2 PT cap refill less than 2 seconds BACK: Nontender without deformity or crepitance. No flank tenderness. NEURO: AOx3. SKIN: No rash or erythema of visible areas Initial Vital Signs Initial Vital Signs: Vital Signs Temperature 98.3 F 09/12/24 14:46 Pulse Rate 83 09/12/24 14:46 Respiratory Rate 16 09/12/24 14:46 Blood Pressure 134/81 09/12/24 14:46 Pulse Oximetry 97 09/12/24 14:46 Oxygen Delivery Method Room Air 09/12/24 14:46 Course Vital Signs Vital signs: Vital Signs - 8 hr 09/12/24 14:46 Temperature 98.3 F Pulse Rate 83 Respiratory Rate 16 Blood Pressure 134/81 Pulse Oximetry 97 Oxygen Delivery Method Room Air MDM - Extremity Injury (Lower) Imaging Data US - DVT: Radiologist's Impression: [place] [address] Ultrasound Report Signed Patient: Tracy Cervantes MR#: [id number] : 1985 Acct:[id number] Age/Sex: 38 / F Date of Service: 08/12/24 Loc: ED Accession Number: [id number] Procedure: US periph venous low extrem lt Ordering Provider: Tami Rivera MD PROCEDURE: US PERIPH VENOUS LOW EXTREM LT INDICATIONS: LEFT CALF PAIN TECHNIQUE: Real-time imaging, as well as color and pulse Doppler interrogation, were performed of the lower extremity deep veins from the inguinal ligament to the popliteal fossa, with documentation of the visualized calf veins. COMPARISON: None. FINDINGS: The common femoral, femoral, popliteal, and the visualized calf veins are normally compressible, and free of intraluminal thrombus. Color and pulse Doppler demonstrate normal phasic intraluminal flow. There is normal augmentation response to distal compression maneuver. Multiple superficial varicosities. No superficial thrombophlebitis. IMPRESSION: No findings of lower extremity deep venous thrombosis. MDM Narrative Medical decision making narrative: Vital signs, nurse triage note, medication list, previous ER visits, and all imaging studies reviewed. Ultrasound from 08/12/2024 shows no findings of DVT multiple superficial varicosities and no superficial thrombophlebitis. Differential diagnosis includes DVT, superficial thrombophlebitis, and varicose vein. Patient will follow up with vascular surgeon appointment on Sunday. Discharge Plan Departure Patient Disposition: Home Clinical Impression: Varicose vein of leg Qualifiers: Varicose vein complication: pain Laterality: left Qualified Code(s): I83.812 - Varicose veins of left lower extremity with pain Instructions: DI for Varicose Veins Activity Restrictions/Additional Instructions: Return with new or worsening symptoms. Follow up with vascular surgery appointment on Sunday. Prescriptions: No Action multivitamin Tablet 1 tab PO DAILY polyethylene glycol 3350 [Miralax] 17 gram Powder In Packet 17 g PO DAILY PRN (Reason: Constipation) methylprednisolone [Medrol (Ean)] 4 mg tablets,dose pack See Rx Instructions .ROUTE .COMPLEX Qty: 21 0RF Rx Instructions: orally per package directions cyclobenzaprine 10 mg tablet 10 mg PO TID PRN (Reason: muscle spasm) Qty: 30 0RF propranolol 10 mg tablet 10 mg PO BID PRN (Reason: Palpitations) Qty: 30 0RF albuterol sulfate 90 mcg/actuation HFA aerosol inhaler 2 puff inhalation QID PRN (Reason: shortness of breath or wheezing) Qty: 6.7 0RF Referrals: Kerry Lake PA-C [Primary Care Provider, Medical] Stand Alone Forms: Patient Portal/API
[2024-09-12 18:48] VITALS: BP 141/91; PULSE 74; RESP 20; O2SAT 98
== END 2024-09-12 18:50 | disposition home or self-care (01) ==
PROVIDERS: Emergency Provider Family Medicine; PCP Physician Assistant Medical
DX: I83.812 Varicose veins of left lower extremity with pain (principal)
CPT/HCPCS: 99281

== ENCOUNTER 2024-09-22 14:11 | Emergency (ER) | payer OTHER, SELFPAY ==
[2024-09-22 14:37] VITALS: BP 125/82; PULSE 81; RESP 16; TEMP 36.7; O2SAT 97; BMI 37.1
--- NOTE | 2024-09-22 14:39 | DI.RAD.S_ITS ---
PROCEDURE: XR CHEST 1V INDICATIONS: Chest Pain TECHNIQUE: One view of the chest was acquired. COMPARISON: [facility], CR, XR CHEST 1V, 09/19/2023, 21:10. FINDINGS: Surgical changes and devices: None. Lungs and pleura: Mild pulmonary vascular congestion. No definite focal infiltrate. No pleural effusions or pneumothorax. Mediastinum: Mediastinal contours appear normal. Heart size is normal. Bones and chest wall: No suspicious bony lesions. Overlying soft tissues appear unremarkable. IMPRESSION: Mild congestion. No focal infiltrate, pleural effusion or pneumothorax. Dictated by: Darion Davalos M.D. on 09/22/2024 at 15:28 Approved by: Darion Davalos M.D. on 09/22/2024 at 15:28
[2024-09-22 15:13] LABS: Add Manual Diff / Slide Review NO; Hematocrit 37.2 % (36-46); Hemoglobin 12.4 g/dL (12.0-16.0); Lymphocytes Absolute Auto 1800 /uL (1100-4500); Mean Corpuscular HGB Conc 33.4 % (30-36); Mean Corpuscular Hemoglobin 29.1 PG (26-34); Mean Corpuscular Volume 87.1 fL (80-100); Platelet Count 239 X10^3/uL (150-400)
[2024-09-22 15:16] LABS: INR 1.0 (0.9-1.3); Prothrombin Time 11.2 SECONDS (9.4-12.5)
[2024-09-22 15:19] LABS: PTT Partial Thromboplastin Tim 30 SECONDS (25.1-36.5)
[2024-09-22 15:22] LABS: Alanine Aminotransferase 49 IU/L (<35); Albumin 4.8 g/dL (3.5-5.0); Albumin Globulin Ratio 1.7 (1.0-2.8); Alkaline Phosphatase 94 U/L (38-126); Blood Urea Nitrogen 7 mg/dL (7-17); Calcium 9.2 mg/dL (8.4-10.2); Carbon Dioxide 21 mmol/L (22-32); Chloride 109 mmol/L (98-107); Creatine Kinase 55 U/L (30-135); Estimated Glomerular Filt Rate > 60 mL/min (>60); Globulin 2.8 g/dL (1.7-4.1); Glucose 100 mg/dL (70-99); HEMOLYSIS < 15 (0-50); Lipase 70 U/L (23-300); Magnesium 2.0 mg/dL (1.6-2.3); Potassium 3.8 mmol/L (3.4-5.1); Sodium 140 mmol/L (137-145); Total Protein 7.6 g/dL (6.3-8.2)
[2024-09-22 15:33] LABS: NT-proBNP (BNP-Adult 18+) 84 pg/mL (<125); Troponin I < 0.012 ng/mL (0.01-0.034)
--- NOTE | 2024-09-22 20:08 | PC.NURSE ---
Patient left at 1758.
== END 2024-09-22 20:09 | disposition left against medical advice (07) ==
PROVIDERS: Family Medicine; Emergency Provider Emergency Medicine; PCP Physician Assistant Medical
DX: R51.9 Headache, unspecified (principal); R06.02 Shortness of breath; R42 Dizziness and giddiness
CPT/HCPCS: 36415; 71045; 80053; 82550; 83690; 83735; 83880; 84484; 85025; 85610; 85730; 99283